=== PATIENT | female | born 1980 | race Two or more races ===

== ENCOUNTER 2022-04-14 10:00 | Outpatient (REF) | payer OTHER, SELFPAY ==
--- NOTE | ~2022-04-14 | MM_ITS ---
EXAMINATION: MM SCREENING DIGITAL BREAST TOMOSYNTHESIS, BILATERAL CLINICAL INFORMATION: Screening. Asymptomatic. Prior sca-ae-xyixb mammography currently unavailable, uncertain location. Age 42. No known family history breast cancer. The lifetime risk of breast cancer based on the Tyrer-Cuzick Model is 8%. COMPARISON: None. TECHNIQUE: Digital breast tomosynthesis is performed in both the craniocaudal and mediolateral oblique views along with computer-aided detection (CAD). Synthesized 2D images are generated from the tomosynthesis. Additional bilateral exaggerated CC views are provided. FINDINGS: The breasts are heterogeneously dense, which may obscure small masses (ACR BI-RADS breast composition Category c). There are no significant masses, abnormal calcifications, or other abnormalities. The axilla are and skin contours are unremarkable. There are bilateral nipple piercings. MM/MM tomosynthesis screening BI IMPRESSION: No mammographic evidence of malignancy. ASSESSMENT: BI-RADS 1: Negative RECOMMENDATION: Routine annual mammography screening. This patient's information was entered into a reminder system with a target due date for their next mammogram.
== END 2022-04-14 10:01 | disposition home or self-care (01) ==
LOC: HO.MAMMO 10:00
PROVIDERS: Visit Provider Internal Medicine
DX: Z12.31 Encounter for screening mammogram for malignant neoplasm of breast (principal)
CPT/HCPCS: 77063; 77067

== ENCOUNTER 2022-05-05 08:46 | Outpatient (REF) | payer OTHER, SELFPAY ==
--- NOTE | ~2022-05-05 | MR_ITS ---
MRI OF THE BRAIN WITHOUT IV CONTRAST INDICATION: Migraine headache. COMPARISON: None available. TECHNIQUE: Multiplanar multisequence MR imaging of the brain was obtained without IV contrast. FINDINGS: There are a few small foci of T2 signal change within the bifrontal white matter which are nonspecific though that can be seen in the setting of migraine headaches. There is no hydrocephalus, extra-axial surface collection, or herniation. The major flow voids at the skull base are preserved. There is no acute infarct on diffusion-weighted imaging. There is no intracranial hemorrhage on the gradient recalled echo acquisition. Mineralization within the globus pallidus bilaterally. The midline structures are normal. The cerebellar tonsils are normally positioned. The cerebellum and brainstem are normal. The craniocervical junction is normal. Osseous marrow signal intensity is homogenous. The visualized soft tissues are unremarkable. MR/MR head/brain wo con IMPRESSION: There are a few small foci of T2 signal change within the bifrontal white matter which are nonspecific though that can be seen in the setting of migraine headaches. Otherwise unremarkable MRI of the brain.
== END 2022-05-05 08:47 | disposition home or self-care (01) ==
LOC: HO.MRI 08:46
PROVIDERS: Visit Provider Internal Medicine
DX: G43.909 Migraine, unspecified, not intractable, without status migrainosus (principal)
CPT/HCPCS: 70551

== ENCOUNTER 2022-10-18 13:47 | Outpatient (REF) | payer OTHER, SELFPAY ==
[2022-10-20 16:57] LABS: HPV mRNA E6/E7 rflx Not Detected (Not Detected)
== END 2022-10-18 13:48 | disposition home or self-care (01) ==
LOC: HO.LNP 13:47
PROVIDERS: Visit Provider Advanced Practice Midwife
DX: Z01.419 Encounter for gynecological examination (general) (routine) without abnormal findings (principal); Z11.3 Encounter for screening for infections with a predominantly sexual mode of transmission; Z30.09 Encounter for other general counseling and advice on contraception
CPT/HCPCS: 87624; 88142

== ENCOUNTER 2022-10-18 15:00 | Outpatient (REF) | payer OTHER, SELFPAY ==
[2022-10-18 16:24] LABS: Syphilis Screen Nonreactive (Nonreactive)
[2022-10-19 03:02] LABS: CT PCR NOT DETECTED (Not Detect.); NG PCR NOT DETECTED (Not Detect.)
[2022-10-19 10:41] LABS: BV Int Neg Control Negative (Negative); BV Int Pos Control Positive (Positive)
[2022-10-20 08:25] LABS: HBsAGNum1 0.38 S/CO (0.00-0.99); HIV AB/AG Nonreactive (Nonreactive); HIV Num 1 0.06 S/CO (0.00-0.99); Hepatitis B Surface Antigen Negative (Negative); ~HepC Num1 0.09 S/CO (0.00-0.79); ~Hepatitis C Antibody Nonreactive (Nonreactive)
== END 2022-10-18 15:01 | disposition home or self-care (01) ==
LOC: HO.LAB 15:00
PROVIDERS: PCP Internal Medicine; Visit Provider Advanced Practice Midwife
DX: Z11.3 Encounter for screening for infections with a predominantly sexual mode of transmission (principal); Z12.4 Encounter for screening for malignant neoplasm of cervix
CPT/HCPCS: 0353U; 86780; 86803; 87340; 87389; 87480; 87510; 87660

== ENCOUNTER → 2022-11-01 10:58 | Outpatient (BNVA) | payer OTHER, SELFPAY | PROVIDERS: PCP Internal Medicine; Visit Provider Advanced Practice Midwife | DX: Z30.430 Encounter for insertion of intrauterine contraceptive device (principal) | CPT/HCPCS: 58300; 81025; 99212; J7300 ==

== ENCOUNTER 2025-08-02 09:31 | Outpatient (REF) | payer OTHER, SELFPAY ==
[2025-08-03 05:37] LABS: CT PCR NOT DETECTED (Not Detect.); NG PCR NOT DETECTED (Not Detect.)
[2025-08-03 05:47] LABS: Bacterial Vaginosis PCR POSITIVE (Negative); Candida Group PCR NOT DETECTED (Not Detect); Candida glab krusei PCR NOT DETECTED (Not Detect); Trichomonas vaginalis PCR NOT DETECTED (Not Detect)
== END 2025-08-02 09:32 | disposition home or self-care (01) ==
LOC: HO.LNP 09:31
PROVIDERS: Visit Provider Advanced Practice Midwife
DX: Z01.419 Encounter for gynecological examination (general) (routine) without abnormal findings (principal); Z12.39 Encounter for other screening for malignant neoplasm of breast; Z30.09 Encounter for other general counseling and advice on contraception; Z12.31 Encounter for screening mammogram for malignant neoplasm of breast; Z97.5 Presence of (intrauterine) contraceptive device; Z20.2 Contact with and (suspected) exposure to infections with a predominantly sexual mode of transmission
CPT/HCPCS: 81515; 87491; 87591; 87626; 88175; 99396

== ENCOUNTER 2025-08-02 09:31 | Outpatient (AMB) | payer OTHER, SELFPAY ==
--- NOTE | 2025-08-02 09:42 | A.OFFVIS_ITS ---
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 She has a primary care appointment coming up in expects blood work then and to have her mammogram ordered. She has not had any other health concerns. She keeps track of her periods and according to the last 3 or 4 months on her phone tony cycles have been 26-28 days and. In total can last 9-10 days counting days of spotting. [facility] Medical History Migraine Surgical History No pertinent past surgical history Family History Father Lung cancer Hypertension Mother Diabetes Asthma Social History (Updated 08/02/25 @ 09:50 by Betty Marsh CMA) Household Members: Family Housing: House Alcohol intake: current Alcohol intake frequency: a few times a month Alcohol type: wine, hard liquor and other Patient Tobacco Use Status: Never used Tobacco e-Cigarette/Vaping Use: Never Used Second Hand Smoke Exposure: No service: No Current occupational status: employed Current occupation: [employer] Current occupational exposures/hazards: No Sexual orientation: Straight/Heterosexual Gender identity: Female Cognitive needs: No Hearing needs: No Vision needs: No Female Reproductive History Menstrual Age of Menarche: 11 Date of last menstrual period: 07/08/25 control method: copper IUCD Total pregnancies: 2 Full term: 2 Number of Living Children: 2 Date of last pap smear: 10/18/22 Date of Mammogram: 04/14/22 Physical Exam Vital Signs: Last Vital Signs BP 116/72 08/02/25 09:45 BMI result Body Mass Index 27.1 Const General: healthy appearing, comfortable, no acute distress, well developed and alert Nutritional Appearance: average body habitus Orientation/consciousness: patient oriented x3 Limitations: no limitations HEENT Head: Yes normocephalic Neck Neck: Yes normal visual inspection Chest Chest palpation & inspection: normal inspection of the chest Breast/axilla inspection: normal inspection of the breasts and normal inspection of the axillae Breast/axilla palpation: normal palpation of the breasts and normal palpation of the axillae Resp Effort & Inspection: normal respiratory effort GI Inspection: Yes normal to inspection, No Abdominal wall edema and No distended Palpation (GI): Soft to palpation and nontender Other: External exam within normal limits vagina is pink and moist clear healthy appearing mucus. Cervix pink with abundant visual capillaries on surface. Pap done as well as testing for infection. ParaGard string difficult to see at 1st but visible after swabs done. Cervix long close thick parous mobile nontender uterus midposition mobile nontender adnexa nontender. Very good muscle tone General: Yes bladder normal to palpation External Female Exam: normal external appearance and normal appearance of the urethra Speculum Exam - Vagina: normal appearance of the vagina, normal palpation and normal vaginal discharge Speculum Exam - Cervix: normal appearance of the cervix, normal palpation and nontender Bimanual exam- vagina & uterus: normal bimanual exam, normal palpation, uterine size normal, bladder normal to palpation, consistency normal, normal palpation, uterine mobility normal, uterine shape normal, No Cervical tenderness present, non-tender and no cervical motion tenderness Bimanual Exam- Adnexa, other: normal adnexae, no masses, normal and No adnexal tenderness Neuro General: patient oriented x3 Results Reviewed Results Reviewed: Ayse Benitez Age/Sex: 42/F Attending: Kenna Rico CNM : 1980 Submitted by: Kenna Rico CNM Copies to: Physician,None MR #: [id number] Status: DEP REF Collected: 10/18/22 [facility] Re[facility]: 10/18/22 Interpretation Satisfactory for evaluation. Negative for intraepithelial lesion or malignancy. Coccobacilli consistent with shift in vaginal ermelinda. Moderate inflammation. HPV mRNA E6/E7: NOT DETECTED This assay detects E6/E7 viral messenger RNA (mRNA) from 14 high-risk HPV types (16, 18, 31, 33, 35, 39, 45, 51, 52, 56, 58, 59, 66, 68) HPV testing performed by [employer], [place], [place]. See reference laboratory portion of the EMR for entire report. Clinical Information LMP: 10/01/22 Previous PAP test: Unknown Material Received ThinPrep-Cervical Copies To Kenna Rico [address] Yarbrough [address] [place] [id number] Physician,None , Electronically Signed By: Myriam Marino 10/25/22 1300 The Pap Test is a screening procedure with the inherent possibility of both false negative and false positive results. Results should be interpreted in the context of historic and current clinical findings. Reliability of the Pap Test is enhanced by performing the test on a regular repetitive basis. Patient: Ayse Benitez Age/Sex: 42/F MR#: [id number] Page 1 of 1 Assessment & Plan Assessment & Plan (1) Cervical cancer screening: Comment: 10/18/22 pap= ng w neg HPV Code(s): Z12.4 - Encounter for screening for malignant neoplasm of cervix Category: Medical (2) Breast cancer screening: Code(s): Z12.39 - Encounter for other screening for malignant neoplasm of breast Category: Medical (3) Well woman exam with routine gynecological exam: Code(s): Z01.419 - Encounter for gynecological examination (general) (routine) without a bnormal findings Category: Medical (4) control counseling: Code(s): Z30.09 - Encounter for other general counseling and advice on contraception Category: Medical (5) IUD (intrauterine device) in place: Comment: Has ParaGard IUDs since October 2022, periods have become longer and she is contemplating switch to Mirena we will plan for switch with next menses. Code(s): Z97.5 - Presence of (intrauterine) contraceptive device Category: Social Hx Plan -----Discussed in this visit the following: healthy balanced diet, regular and consistent exercise, getting recommended health screens, doing the best she can for her particular health concerns, kegel exercises, pap smear screening and followup recommendations, mammography screening and SBE, normal changes in cycles in her life stage--- . Patient is strongly considering switching the ParaGard to the Mirena she talked to her sister who has a Mirena about her side effects she will give it a try she originally wanted the ParaGard because she did not want any hormonal changes to affect her body and how she feels but the periods have gotten longer and they are getting annoying she does not feel weak or tired she will be seeing her primary and will be getting blood work very soon in about 3 weeks. During this visit she decided she will switch to the Mirena. She is due for her period Essentially this weekend (review of the last 3-4 months in her calendar revealed cycles that are 26-28 days in length lasting up to 10 days sometimes only about 3 days are heavy.) Secondary to office scheduling we will do her best to add her in hopefully next but she needs to call when she gets her menses. The visit will most likely be in our [facility] office. 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 She is healthy otherwise she was not due for Pap but I did 1 just secondary to the appearance of the cervix just to be double sure. Testing for STIs done in preparation for IUD switch out. Orders: Orders MM tomosynthesis screening BI Today Z12.31 - Encounter for screening mammogram for malignant neoplasm of breast Coding Level of Care Code Est Pt Prev Care 40-64y(24566) Diagnoses Cervical cancer screening Z12.4 Breast cancer screening Z12.39 Well woman exam with routine gynecological exam Z01.419 control counseling Z30.09 IUD (intrauterine device) in place Z97.5
[2025-08-02 09:45] VITALS: BP 116/72; BMI 27.1
== END 2025-08-02 10:41 | disposition home or self-care (01) ==
LOC: HO.HWS 09:32
PROVIDERS: Visit Provider Advanced Practice Midwife
DX: Z01.419 Encounter for gynecological examination (general) (routine) without abnormal findings (principal); Z12.39 Encounter for other screening for malignant neoplasm of breast; Z30.09 Encounter for other general counseling and advice on contraception; Z97.5 Presence of (intrauterine) contraceptive device
CPT/HCPCS: 99396; 99459

== ENCOUNTER 2025-08-08 09:42 | Outpatient (AMB) | payer OTHER, SELFPAY ==
--- NOTE | 2025-08-08 10:01 | MHC.OFFVIS ---
Vital Signs 08/08/25 10:07 Height 5 ft Weight 143 lb BMI 27.9 BP 124/62 Blood Pressure Location Lt brachial Position Sitting Intake Visit Reasons: IUD removal/insertion Intake Note: Patient here to remove Paraqard due to having 10 day periods. Has been in place for 2 years. will insert Mirena IUD today. Dairy Nutrition Consultant Required: No Information Interpreted: non-clinical & clinical Bag Loader: Bag Loader Present (alireza) Accompanied by: Self / Same As Patient Allergies seafood Allergy (Mild, Uncoded 08/08/25 10:04) Hives Medication List - Last Reconciled 08/08/25 by Geri Mckeon LPN copper (ParaGard T 380A) intrauterine DAILY ibuprofen 600 mg PO QID PRN Is last menstrual period known: Yes Last menstrual period: 08/04/25 Do you need a note to return to daycare/school/sports/work: No HPI HPI IUD removal/insertion: Details: Patient is here for a ParaGard removal and Mirena insertion her periods started Tuesday it has been lasting up to 10 days. At a visit last Tuesday we discussed switching out the ParaGard and replacing it with the Mirena because of this she is here for this today she did call earlier in the week but she was working Tuesday and Tuesday and this provider was not working yesterday so today was the 1st day available she says it is not as heavy as it was previous but it is still giving her some cramping. We are doing a test as appropriate she is allergic to shrimp so we will be using Hibiclens for the procedure she does not have any other questions at this time. [facility] Medical History Migraine Surgical History No pertinent past surgical history Family History Father Lung cancer Hypertension Mother Diabetes Asthma Social History Household Members: Family Housing: House Alcohol intake: current Alcohol intake frequency: a few times a month Alcohol type: wine, hard liquor and other Patient Tobacco Use Status: Never used Tobacco e-Cigarette/Vaping Use: Never Used Second Hand Smoke Exposure: No service: No Current occupational status: employed Current occupation: [employer] Current occupational exposures/hazards: No Sexual orientation: Straight/Heterosexual Gender identity: Female Cognitive needs: No Hearing needs: No Vision needs: No Female Reproductive History Menstrual Age of Menarche: 11 Date of last menstrual period: 08/04/25 control method: copper IUCD Total pregnancies: 2 Number of Living Children: 2 Date of last pap smear: 08/05/25 History of abnormal pap smear: No Date of Mammogram: 04/14/22 History of abnormal mammogram: No Physical Exam Vital Signs: Last Vital Signs BP 124/62 08/08/25 10:07 BMI result Body Mass Index 27.9 Other: Please see the procedure section for details cervix is patulous with heavy menses ParaGard string easily palpable and visible and uterus is small anteverted mobile nontender. Office Procedures IUD Insert/Removal Details Details: Per previous discussion for managing her menorrhagia as well as need for control. Patient has heavy menses she is on day 5. She is in agreement with this plan and signed the consent forms bimanual exam revealed cervix parous strings are easily palpable moderate to heavy menses. ParaGard string easily visualized and grasped with ring forceps and ParaGard removed with 1 tug. Cervix was cleanse with Hibiclens as patient is allergic to Betadine/shrimp Large parous cervix with nabothian cysts was grasped with tenaculum. Uterus was sounded to 8 cm. Mirena IU S was inserted per protocol package instructions with ease. Tenaculum was removed moderate amount of brisk bleeding noted which gradually resolved with gentle pressure with swabs. Strings were trimmed to about 3-4 cm. Speculum was removed. Patient set up she felt okay then she felt very slight ringing and was encouraged to rest supine for little while longer. She felt fine and we discussed danger signs of when to call and we will otherwise see her in about 6 weeks discussed gradual changes as her body adjusts and potential side effects to watch for and we will see how she feels with this particular method. 23904-HBT Insertion [id number]-KGM Removal Procedure code (CPT) selection complete IUD Insert/Removal Details Details: paraquard removed 41505-TEB Removal Procedure code (CPT) selection complete Office Meds Mirena 21 mcg/24 hr (up to 8 years) 52 mg intrauterine device Performing Provider: Kenna Rico CNM Performing Location: [facility] Administered by: Geri Mckeon LPN on 08/08/25 13:27 Dose Route Admin Location Dispensed Lot Number Expiration Date [facility] Neuropsychology Director 1 device intrauterine 1 device [id number] 09/08/27 [id number] [employer] Total Dispensed Waste 1 device 0 % Results AMB Test Urine AMB Test Urine Negative Last Edit by Geri Mckeon LPN on 08/08/25 10:57 Results Reviewed Results Reviewed: Laboratory Last Values Tst Clinic Negative 08/08/25 10:56 Assessment & Plan Assessment & Plan (1) Cervical cancer screening: Comment: 10/18/22 pap= ng w neg HPV Code(s): Z12.4 - Encounter for screening for malignant neoplasm of cervix Category: Medical (2) control counseling: Code(s): Z30.09 - Encounter for other general counseling and advice on contraception Category: Medical (3) Encounter for IUD insertion: Comment: ParaGard IUD inserted 11/01/2022.; 08/08/2025 plan today is to remove the ParaGard IUD secondary to menorrhagia and replace it with the Mirena she is on day 5 of her menses. Code(s): Z30.430 - Encounter for insertion of intrauterine contraceptive device Category: Medical (4) IUD (intrauterine device) in place: Comment: Has ParaGard IUDs since October 2022, periods have become longer and she is contemplating switch to Mirena we will plan for switch with next menses. Code(s): Z97.5 - Presence of (intrauterine) contraceptive device Category: Social Hx (5) Encounter for removal and reinsertion of intrauterine contraceptive device (IUD): Code(s): Z30.433 - Encounter for removal and reinsertion of intrauterine contraceptive device Category: Medical (6) Vaso-vagal reaction: Comment: WITH IUD REPLACEMENT, mild. Code(s): R55 - Syncope and collapse Category: Medical Plan Please see the procedure section and the HPI section the ParaGard was easily removed her uterus sounded to 8 cm the Mirena IUD was easily inserted she did have some bleeding from the tenaculum size which subsided and she had a very mild vasovagal response after which subsided quickly note given to excuse from work in case she is not feeling well. Reviewed the side effects of the Mirena and what to expect and danger signs to call for we will see her in about 6 weeks she may take more ibuprofen should she need it with food in her tummy, Orders: Orders AMB HCG Urine Test Today Z32.02 - Encounter for test, result negative AMB IUD Insertion/Removal - Practice Supplied Today Z30.430 - Encounter for insertion of intrauterine contraceptive device Coding Level of Care Code Est Pt Level 3 (82309) Diagnoses Cervical cancer screening Z12.4 control counseling Z30.09 Encounter for IUD insertion Z30.430 IUD (intrauterine device) in place Z97.5 Encounter for removal and reinsertion of intrauterine contraceptive device (IUD) Z30.433 Vaso-vagal reaction R55 CPT Codes Details - CPT: 59861-OQV Insertion ([id number]) Details - CPT: 76442-WHQ Removal ([id number]) Details - CPT: 88366-HTD Removal ([id number])
[2025-08-08 10:07] VITALS: BP 124/62; BMI 27.9
== END 2025-08-08 11:47 | disposition home or self-care (01) ==
LOC: HO.HWSM 09:42
PROVIDERS: Visit Provider Advanced Practice Midwife
DX: Z12.4 Encounter for screening for malignant neoplasm of cervix (principal); Z30.09 Encounter for other general counseling and advice on contraception; Z30.430 Encounter for insertion of intrauterine contraceptive device; Z97.5 Presence of (intrauterine) contraceptive device; Z30.433 Encounter for removal and reinsertion of intrauterine contraceptive device; R55 Syncope and collapse
CPT/HCPCS: 58300; 58301

== ENCOUNTER → 2025-08-08 09:42 | Outpatient (BNVA) | payer OTHER, SELFPAY | PROVIDERS: Visit Provider Advanced Practice Midwife | DX: Z30.433 Encounter for removal and reinsertion of intrauterine contraceptive device (principal); Z32.02 Encounter for pregnancy test, result negative; R55 Syncope and collapse | CPT/HCPCS: 58300; 58301; J7298 ==

== ENCOUNTER 2025-08-15 07:28 | Outpatient (AMB) | payer OTHER, SELFPAY ==
[2025-08-15 07:38] VITALS: BP 112/62; PULSE 86; O2SAT 99; BMI 28.1
--- NOTE | 2025-08-15 07:38 | A.OFFPC_ITS ---
Vital Signs 08/15/25 07:38 Height 5 ft Weight 144 lb BMI 28.1 BP 112/62 Blood Pressure Location Lt brachial Position Sitting Pulse 86 Pulse Source Pulse Oximeter Pulse Oximetry (%) 99 Oxygen Delivery Method Room Air Intake Visit Reasons: NEW PATIENT -RE ESTABLISH Neuropsychology Medical Consultant Required: No Accompanied by: Self / Same As Patient Patient : No Allergies seafood Allergy (Mild, Uncoded 08/15/25 07:47) Hives Medication List - Last Reconciled 08/15/25 by Madina Carranza MD ibuprofen 600 mg PO QID PRN Tobacco use date assessed: 08/15/25 Dental Screening Dental Screen Date: 08/15/25 Did you have a dental visit in the last 12 months?: Yes Did you have a dental problem in the last 6 months where you did not have access to dental care?: No Was dental information given to patient?: Patient has dentist HPI HPI Comments History of Present Illness Details The patient is a 45-year-old female who presents to address recurrent cold sores, migraines, hand paresthesias and plantar fascitis. The patient reports a history of migraines, for which she currently uses ibuprofen as needed with good effect. A previous prescription for a different migraine medication was not filled because she feared it would be too strong. She also experiences recurrent herpes labialis, which she notes is often triggered by stress or the common cold. The patient has a history of mild depression, with a PHQ-9 score of 5. She used to see a counselor but discontinued due to insurance issues and intends to resume therapy when her insurance changes in October. Recently, the patient has experienced numbness in her hands during sleep and pain in her feet upon waking, which makes it difficult to stand immediately. The foot pain has previously caused her to fall on the stairs. Exercises were given for plantar fascitis. Her medical history is significant for an allergy to seafood. The patient has no history of surgeries. She is up to date with her Tdap vaccine (2019) and Pap smear (this year) and has a mammogram scheduled in September. She has never received an influenza vaccine. Family history is notable for her father who at age 60 from lung cancer and had hypertension. Her mother is alive with a history of asthma, diabetes, and poor circulation, which has rendered her bed-bound. [facility] Medical History (Updated 08/15/25 @ 08:08 by Madina Carranza MD) Migraine Surgical History No pertinent past surgical history Family History Father Lung cancer Hypertension Mother Diabetes Asthma Son No problems noted. Daughter No problems noted. Sister No problems noted. Sister Seizure Social History Household Members: Family Housing: House Alcohol intake: current Alcohol intake frequency: a few times a month Alcohol type: wine, hard liquor and other Patient Tobacco Use Status: Never used Tobacco Tobacco use type: Cigarette e-Cigarette/Vaping Use: Never Used Second Hand Smoke Exposure: No service: No Current occupational status: employed Current occupation: [employer] Current occupational exposures/hazards: No Sexual orientation: Straight/Heterosexual Gender identity: Female Cognitive needs: No Hearing needs: No Vision needs: Yes Female Reproductive History Menstrual Age of Menarche: 11 Questionnaire PHQ-9 Over the last 2 weeks, how often have you been bothered by any of the following problems? 1. Little interest or pleasure in doing things: several days 2. Feeling down, depressed, or hopeless: several days 3. Trouble falling or staying asleep, or sleeping too much: several days 4. Feeling tired or having little energy: several days 5. Poor appetite or overeating: not at all 6. Feeling bad about yourself - or that you are a failure or have let yourself or your family down: several days 7. Trouble concentrating on things, such as reading the newspaper or watching television: not at all 8. Moving or speaking so slowly that other people could have noticed. Or the opposite - being so fidgety or restless that you have been moving around a lot more than usual: not at all 9. Thoughts that you would be better off or of hurting yourself in some way: not at all Total score: 5 Depression Screening Interpretation: Positive Depression Screening Follow-up: Existing condition and Follow-up Visit Requested Depression Screening Done: Yes 41106 - PHQ-9 Billing: Yes Source: Developed by Drs. Vernon Brown, Young Pradoke and colleagues, with an educational guadalupe from [employer]. Thrive Questionnaire Date Thrive assessed: 08/15/25 I am a: Patient What is your living situation today?: I have a steady place to live Within the past 12 months, did the food you bought not last and you didn't have the money to get more?: Sometimes True Within the past 12 months, did you worry whether your food would run out before you got money to buy more?: Sometimes True Do you have trouble paying for medicines?: I choose not to answer this question Do you have trouble getting transportation to medical appointments?: No Do you have trouble paying your heating and electricity bill?: I choose not to answer this question Do you have trouble taking care of your child, family member or friend?: No Do you have trouble with day-to-day activities such as bathing, preparing meals, shopping, managing finances, etc.?: No Are you currently unemployed and looking for a job?: I choose not to answer this question Are you interested in more education?: I choose not to answer this question Please select the resources that you would like help with: Food and Paying for medicine Currently or been in a relationship where the following occur: I choose not to answer THRIVE Score: 2 AUDIT C Alcohol Use Questionnaire (AUDIT-C) 1. How often do you have a drink containing alcohol?: Monthly or less 2. How many drinks containing alcohol do you have on a typical day when you are drinking?: 1 or 2 3. How often do you have six or more drinks on one occasion?: Never Total Score: 1 Score Reviewed/Action Taken: No CRISTAL-7 AMB Questionnaire CRISTAL-7 Date CRISTAL - 7 assessed: 08/15/25 Feeling nervous, anxious, or on edge: 1 = Several days Not being able to stop or control worryin = Several days Worrying too much about different things: 1 = Several days Trouble relaxin = Several days Being so restless that it is hard to sit still: 0 = Not at all Becoming easily annoyed or irritable: 1 = Several days Feeling afraid as if something awful might happen: 1 = Several days Total CRISTAL-7 score (0-4 normal; 5-9 mild; 10-14 moderate; 15-21 severe): 6 Source: Developed by Drs. Vernon Brown, Kari Flor, Young Hines and colleagues, with an educational guadalupe from [employer]. CRISTAL-7 Assessment Billing CRISTAL-7 Assessment Tool: CRISTAL-7 Assessment 94864 Review of Systems Const All systems reviewed & are unremarkable except as noted in HPI and below Card Denies chest pain at rest, Denies chest pain with activity, Denies edema, Denies irregular heart rhythm, Denies claudication, Denies dyspnea, Denies dyspnea on exertion, Denies orthopnea, Denies paroxysmal nocturnal dyspnea and Denies slow heart rate Resp Denies cough, Denies dyspnea and Denies dyspnea on exertion Skin/Breast Denies bleeding lesions, Denies changing lesions and Denies rash Physical exam (Primary Care) Vital Signs: Last Vital Signs Pulse 86 08/15/25 07:38 BP 112/62 08/15/25 07:38 Pulse Ox 99 08/15/25 07:38 Oxygen Delivery Method Room Air 08/15/25 07:38 BMI result Body Mass Index 28.1 Tobacco/Smoking Status: Tobacco use Status Tobacco use date assessed 08/15/25 08/15/25 07:44 Patient Tobacco Use Status Never used Tobacco 08/15/25 07:44 Tobacco use type Cigarette 08/15/25 07:44 e-Cigarette/Vaping Use Never Used 08/15/25 07:44 PHQ-9: PHQ-9 Score PHQ-9: Total score 5 08/15/25 07:44 Depression Screening Interpretation: Positive Depression Screening Follow-up: Existing condition and Follow-up Visit Requested Thrive Assessment: Date of Thrive Assessment Date Thrive assessed 08/15/25 08/15/25 07:44 Currently or been in a relationship where the following occur: I choose not to answer Resp Effort & Inspection: normal respiratory effort Auscultation: clear to auscultation bilaterally Cardio Jugular venous distension: no JVD Rate: regular rate Rhythm: regular rhythm Heart sounds: S1 normal heart sound present and S2 normal heart sound present Extrem General: Yes full ROM Coding Level of Care Code New Pt Level 4 (04026) Diagnoses Hand paresthesia R20.2 Migraines G43.909 Cold sore B00.1 Plantar fasciitis, bilateral M72.2 Mild recurrent major depression F33.0 Additional Codes CRISTAL-7 Assessment Billing - CRISTAL-7 Assessment Tool: CRISTAL-7 Assessment 84752 ([id number]) PHQ-9 - 58547 - PHQ-9 Billing: Yes ([id number]) Time Spent (min) 24 Assessment & Plan Assessment & Plan (1) Hand paresthesia: Code(s): R20.2 - Paresthesia of skin Category: Medical (2) Migraines: Code(s): G43.909 - Migraine, unspecified, not intractable, without status migrainosus Category: Medical (3) Cold sore: Code(s): B00.1 - Herpesviral vesicular dermatitis Category: Medical (4) Plantar fasciitis, bilateral: Code(s): M72.2 - Plantar fascial fibromatosis Category: Medical (5) Mild recurrent major depression: Code(s): F33.0 - Major depressive disorder, recurrent, mild Category: Medical Plan Plan 1. Herpes Simplex Labialis A prescription for valacyclovir with one refill will be sent to the patient's pharmacy to manage outbreaks. 2. Migraine The patient reports that ibuprofen is effective for her migraines. A prescription for ibuprofen will be sent to the pharmacy. 3. Paresthesia Of Hands To further evaluate the patient's report of hand numbness, a nerve conduction study will be ordered. 4. Plantar Fasciitis The patient's symptoms of foot pain upon waking are consistent with plantar fasciitis. Advised the patient to perform home exercises, specifically rolling a cylindrical object under her foot approximately 100 times before bed. 5. Depression The patient reports very mild depression and has a history of seeing a counselor. She plans to re-engage with counseling once her insurance changes. 6. Health Maintenance Blood work will be ordered. Given the patient is 45 years old, an at-home Cologuard test will be sent for colon cancer screening. A follow-up visit will be scheduled to conduct a full physical examination. The flu vaccine was d iscussed, but the patient is hesitant and has never received one. Orders: Orders NE nerve conduction velocity Today R20.2 - Paresthesia of skin Vitamin D 25-OH Total Today E55.9 - Vitamin D deficiency, unspecified Comprehensive [facility]. Panel Fast Today R20.2 - Paresthesia of skin Thyroid Stimulating Hormone Today R79.89 - Other specified abnormal findings of blood chemistry Thyroid Peroxidase Antibodies Today R79.89 - Other specified abnormal findings of blood chemistry NE electromyogram (EMG) Today R20.2 - Paresthesia of skin Vitamin B12 and Folate Today R20.2 - Paresthesia of skin Complete Blood Count Auto Diff Today R20.2 - Paresthesia of skin Free T4 (Free Thyroxine) Today R79.89 - Other specified abnormal findings of blood chemistry Thyroglobulin Antibodies Today R79.89 - Other specified abnormal findings of blood chemistry Lipid Panel Today E78.5 - Hyperlipidemia, unspecified, R79.89 - Other specified abnormal findings of blood chemistry Referrals Cologuard Test R79.89 - Other specified abnormal findings of blood chemistry, Z12.11 - Encounter for screening for malignant neoplasm of colon, Z12.12 - Encounter for screening for malignant neoplasm of rectum Medications: New valacyclovir 1,000 mg PO Q8H 21 tabs 1RF 7 days B00.1 - Herpesviral vesicular dermatitis valacyclovir 1,000 mg PO Q8H 7 days 21 tabs 1RF B00.1 - Herpesviral vesicular dermatitis Changed From ibuprofen 600 mg PO QID PRN To ibuprofen 600 mg PO Q8H PRN 90 tabs 1RF pain 30 days
== END 2025-08-15 08:01 | disposition home or self-care (01) ==
LOC: HO.HMCH 07:29
PROVIDERS: PCP Internal Medicine; Visit Provider Internal Medicine
DX: R20.2 Paresthesia of skin (principal); G43.909 Migraine, unspecified, not intractable, without status migrainosus; B00.1 Herpesviral vesicular dermatitis; M72.2 Plantar fascial fibromatosis; F33.0 Major depressive disorder, recurrent, mild

== ENCOUNTER → 2025-08-15 07:28 | Outpatient (BNVA) | payer OTHER, SELFPAY | PROVIDERS: PCP Internal Medicine; Visit Provider Internal Medicine | DX: B00.1 Herpesviral vesicular dermatitis (principal); G43.909 Migraine, unspecified, not intractable, without status migrainosus; R20.2 Paresthesia of skin; M72.2 Plantar fascial fibromatosis; F33.0 Major depressive disorder, recurrent, mild | CPT/HCPCS: 96127; 99202 ==

== ENCOUNTER 2025-09-20 08:46 | Outpatient (AMB) | payer OTHER, SELFPAY ==
--- NOTE | 2025-09-20 09:02 | MHC.OFFVIS ---
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 Needs lasting about 10 days. Her next. After changing to the Mirena was just very light with little spotting but patient was more aware of breast symptoms with the menses she is again aware that she is feeling though sensations as if her menses are going to be coming but we discussed that the the range of what she experiences is wide and she may get any where from some spotting or light menses to no menses at all but it is aparicio to keep track of her symptoms for her own self-awareness going forward. She had no difficulty with it having sex either she could not feel the string but her tried also but he could not either. [facility] Medical History Migraine Surgical History No pertinent past surgical history Family History Father Lung cancer Hypertension Mother Diabetes Asthma Son No problems noted. Daughter No problems noted. Sister No problems noted. Sister Seizure Social History Household Members: Family Housing: House Alcohol intake: current Alcohol intake frequency: a few times a month Alcohol type: wine, hard liquor and other Patient Tobacco Use Status: Never used Tobacco Tobacco use type: Cigarette e-Cigarette/Vaping Use: Never Used Second Hand Smoke Exposure: No Patient : No service: No Current occupational status: employed Current occupation: [id number] Current occupational exposures/hazards: No Sexual orientation: Straight/Heterosexual Gender identity: Female Cognitive needs: No Hearing needs: No Vision needs: Yes Female Reproductive History Menstrual Age of Menarche: 11 control method: progestin IUCD (Mirena ) Total pregnancies: 2 Full term: 2 Date of last pap smear: 08/02/25 (negative pap smear, negative hpv ) Physical Exam Vital Signs: Last Vital Signs BP 108/62 09/20/25 09:10 BMI result Body Mass Index 28.7 Other: External exam within normal limits vagina pink and moist multiparous cervix pink smooth healthy appearing Mirena string visible and extends about 2-2-1/2 cm long curled around os. No abnormal discharge. Assessment & Plan Assessment & Plan (1) Cervical cancer screening: Comment: 10/18/22 pap= ng w neg HPV; 08/02/25 Pap is negative, w negative HPV. Code(s): Z12.4 - Encounter for screening for malignant neoplasm of cervix Category: Medical (2) Presence of 52 mg levonorgestrel-releasing intrauterine device (IUD): Code(s): Z97.5 - Presence of (intrauterine) contraceptive device Category: Social Hx (3) Encounter for routine checking of intrauterine contraceptive device (IUD): Code(s): Z30.431 - Encounter for routine checking of intrauterine contraceptive device Category: Medical Plan Patient is here for her IUD check she had a ParaGard switched out for a Mirena IUD secondary to very long heavy. Needs lasting about 10 days. Her next. After changing to the Mirena was just very light with little spotting but patient was more aware of breast symptoms with the menses she is again aware that she is feeling though sensations as if her menses are going to be coming but we discussed that the the range of what she experiences is wide and she may get any where from some spotting or light menses to no menses at all but it is aparicio to keep track of her symptoms for her own self-awareness going forward. She had no difficulty with it having sex either she could not feel the string but her tried also but he could not either. Reviewed what to expect from this IUD and that there is a range of menstrual very ability the people experience. I recommend she continue to keep track for her own benefit of her symptoms. RTC 1 year. She has seen her primary care provider, who has ordered a CBC among other labs. Coding Level of Care Code Est Pt Level 3 (57907) Diagnoses Cervical cancer screening Z12.4 Presence of 52 mg levonorgestrel-releasing intrauterine device (IUD) Z97.5 Encounter for routine checking of intrauterine contraceptive device (IUD) Z30.431
[2025-09-20 09:10] VITALS: BP 108/62; BMI 28.7
== END 2025-09-20 14:14 | disposition home or self-care (01) ==
PROVIDERS: PCP Internal Medicine; Visit Provider Advanced Practice Midwife
DX: Z12.4 Encounter for screening for malignant neoplasm of cervix (principal); Z97.5 Presence of (intrauterine) contraceptive device; Z30.431 Encounter for routine checking of intrauterine contraceptive device
CPT/HCPCS: 99213

== ENCOUNTER → 2025-09-20 08:46 | Outpatient (BNVA) | payer OTHER, SELFPAY | PROVIDERS: PCP Internal Medicine; Visit Provider Advanced Practice Midwife | DX: Z12.4 Encounter for screening for malignant neoplasm of cervix (principal); Z97.5 Presence of (intrauterine) contraceptive device | CPT/HCPCS: 99212 ==

== ENCOUNTER 2025-09-24 09:10 | Outpatient (REF) | payer OTHER, SELFPAY ==
--- NOTE | 2025-09-24 09:13 | EMG_ITS ---
Chief complaint: Hand numbness and tingling Referred by: Madina Carranza MD Procedure done: NCS and EMG of bilateral upper extremities Bilateral median and ulnar motor and sensory studies were performed. Bilateral radial sensory studies were performed and paraspinal muscles were tested with a needle. Findings: Right median motor distal latencies was significantly prolonged while on the left-sided was borderline normal. Median mixed distal latencies were significantly prolonged on the right side and mild on the left. Conduction velocity of median mixed was slow on the right side. 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
== END 2025-09-24 09:11 | disposition home or self-care (01) ==
LOC: HO.NEURO 09:10
PROVIDERS: PCP Internal Medicine; Visit Provider Internal Medicine
DX: R20.2 Paresthesia of skin (principal)
CPT/HCPCS: 95886; 95911

== ENCOUNTER → 2025-09-24 09:13 | Outpatient (BNV) | payer OTHER, SELFPAY | PROVIDERS: PCP Internal Medicine; Visit Provider Psychiatry & Neurology Neurology | DX: G56.03 Carpal tunnel syndrome, bilateral upper limbs (principal) | CPT/HCPCS: 95886; 95911 ==